=== PATIENT | male | born 1940 ===

== ENCOUNTER → 2023-07-01 | Outpatient (CLI) | payer MEDICARE, OTHER ==
[~2023-07-01] VITALS: Ht 180.3 cm; Wt 77.0 kg
[~2023-07-01] MED LIST: APIX5TAB PO; ATOR40TA28 PO; CHOL500013 PO; FLUT1BLS15 IH; HYDR25TA2 PO; METO25 PO; SACU1TAB PO
[2023-07-01 10:34] VITALS: BP 121/71; PULSE 89; RESP 18; TEMP 97.6; O2SAT 96
== END | disposition home or self-care (01) ==
LOC: SRCNTR 10:03
PROVIDERS: ATTEND Internal Medicine
DX: R91.1 Solitary pulmonary nodule (principal); J43.9 Emphysema, unspecified; Z87.891 Personal history of nicotine dependence; Z79.899 Other long term (current) drug therapy
CPT/HCPCS: G0463; Z7500

== ENCOUNTER → 2023-08-14 | Outpatient (CLI) | payer MEDICARE, OTHER ==
[~2023-08-14] VITALS: Ht 180.3 cm; Wt 77.0 kg
[2023-08-14 09:49] VITALS: BP 100/63; PULSE 85; RESP 18; TEMP 97.8; O2SAT 95
== END | disposition home or self-care (01) ==
LOC: SRCNTR 09:36 → EDSTATUS 10:00
PROVIDERS: ATTEND Internal Medicine
DX: R91.1 Solitary pulmonary nodule (principal); J43.9 Emphysema, unspecified
CPT/HCPCS: G0463